=== PATIENT | female | born 2000 | race Caucasian/White ===

== ENCOUNTER 2019-01-19 04:10 | Emergency (ER) | payer SELFPAY | END 2019-01-19 04:29 | disposition home or self-care (01) | LOC: ERS 04:10 | DX: S00.511A Abrasion of lip, initial encounter (principal); F41.9 Anxiety disorder, unspecified; F31.9 Bipolar disorder, unspecified; W51.XXXA Accidental striking against or bumped into by another person, initial encounter | CPT/HCPCS: 99281 ==